=== PATIENT | female | born 1945 | race Caucasian/White ===

== ENCOUNTER → 2017-06-16 | Outpatient (CLI) | payer MEDICARE ==
[~2017-06-16] MED LIST: CALC200T3 PO; FLUO20TA25 PO; MELA1TAB22 PO; MULT-658 PO; [UNRECOGNIZED DRUG - OTHER] PO; excedrin pm PO
== END | disposition home or self-care (01) ==
LOC: STAR 10:24
PROVIDERS: ATTEND Orthopaedic Surgery
DX: S80.02XA Contusion of left knee, initial encounter (principal); S83.289A Other tear of lateral meniscus, current injury, unspecified knee, initial encounter; S83.249A Other tear of medial meniscus, current injury, unspecified knee, initial encounter; M17.12 Unilateral primary osteoarthritis, left knee
CPT/HCPCS: 87081